=== PATIENT | female | born 1960 | race Caucasian/White ===

== ENCOUNTER 2018-07-31 09:58 | Inpatient (IN) | payer OTHER ==
[~2018-07-31 09:58] MED LIST: DEXAMETHASONE 4 MG/ML 5 ML INJ; GLYCOPYRROLATE 0.4 MG INJ; METOPROLOL 5 MG INJ; NEOSTIGMINE 3 MG/3 ML SYRINGE; PROPOFOL 200 MG INJ; ROCURONIUM 50 MG INJ
[2018-07-31] MEDS ORDERED: FENTAnyl 50 MCG/ML VIAL ×2 (10:07→16:43)
[2018-07-31] MEDS ORDERED: MIDAZOLAM 1 MG/ML 2 ML INJ (10:07)
[2018-07-31] MEDS ORDERED: PROPOFOL 20 ML (10:11)
[2018-07-31] MEDS ORDERED: CEFAZOLIN 1 GM INJ ×2 (10:11→13:33)
[2018-07-31] MEDS ORDERED: LIDOCAINE 2% (SDV) 5 ML INJ (10:11)
[2018-07-31] MEDS ORDERED: METOCLOPRAMIDE 10 MG INJ (10:12)
[2018-07-31] MEDS ORDERED: ROCURONIUM 50 MG INJ (10:16)
[2018-07-31] MEDS ORDERED: SUCCINYLCHOLINE CHLORIDE 100 MG/5 ML SYG IV (10:17)
[2018-07-31] MEDS ORDERED: IPRATROPIUM (NEB) 0.5 MG/2.5 ML AMP HHN (12:30)
[2018-07-31] MEDS ORDERED: hydrALAzine 20 MG INJ IV (12:30)
[2018-07-31] MEDS ORDERED: BISACODYL 10 MG SUPP PR (12:30)
[2018-07-31] MEDS ORDERED: CEPASTAT LOZENGE MT (12:30)
[2018-07-31] MEDS ORDERED: NALOXONE (0.4 MG/ML) INJ IV (12:30)
[2018-07-31] MEDS ORDERED: FENTAnyl 50 MCG/ML VIAL IV (12:30)
[2018-07-31] MEDS ORDERED: HYDROmorphONE 0.5 MG/0.5 ML SYG IV (12:30)
[2018-07-31] MEDS ORDERED: ONDANSETRON 4 MG INJ IV (12:30)
[2018-07-31] MEDS ORDERED: DIPHENHYDRAMINE 50 MG INJ IV ×2 (12:30)
[2018-07-31] MEDS ORDERED: MIDAZOLAM 1 MG/ML 2 ML INJ IV (12:30)
[2018-07-31] MEDS ORDERED: MEPERIDINE 25 MG INJ IV (12:30)
[2018-07-31] MEDS ORDERED: LABETALOL HCL 20MG INJ IV (12:30)
[2018-07-31] MEDS ORDERED: DIPHENHYDRAMINE 25 MG CAP PO (12:30)
[2018-07-31] MEDS ORDERED: AL HYDROX/MG HYDROX/SIMETH 30 ML CUP PO (12:30)
[2018-07-31] MEDS ORDERED: HYDROmorphONE 1 MG/5 ML IV SYRINGE IV (12:30)
[2018-07-31] MEDS ORDERED: LEVALBUTEROL (NEB) 1.25 MG/0.5 ML AMP HHN (12:30)
[2018-07-31] MEDS ORDERED: HALOPERIDOL 5 MG INJ IV (12:30)
[2018-07-31] MEDS ORDERED: LORAZEPAM 2 MG INJ IV (12:30)
[2018-07-31] MEDS ORDERED: GELATIN SIZE 100 SPONGE (12:40)
[2018-07-31] MEDS ORDERED: THROMBIN (BOVINE) 5,000 UNIT VIAL TP ×2 (12:41→14:52)
[2018-07-31] MEDS: BUPIVACAINE 0.5%/EPI (SDV) 30 ML INJ (14:22)
[2018-07-31] MEDS: CEFAZOLIN 1 GM INJ (14:23)
[2018-07-31] MEDS: SURGIFOAM POWDER 1 GM KIT ×2 (14:23→14:24)
[2018-07-31] MEDS: HEPARIN 1000 UNITS/ML 10 ML INJ ×2 (14:24)
[2018-07-31] MEDS: THROMBIN 5000 UNIT VIAL TOP ×3 (14:25→14:58)
[2018-07-31] MEDS: CA CHLORIDE 10% 10 ML SYRINGE (14:59)
[2018-07-31] MEDS: HYDROmorphONE 1 MG/5 ML IV SYRINGE IV ×2 (17:20→17:26)
[2018-07-31] MEDS: CEFAZOLIN 1 GM/50 ML (PMX) 50 ML IVPB (17:26)
[2018-07-31] MEDS: ONDANSETRON 4 MG INJ IV (17:26)
[2018-07-31] MEDS: FENTAnyl 50 MCG/ML VIAL IV ×2 (17:39→17:49)
[2018-07-31] MEDS: HYDROmorphONE 0.2 MG/ML PCA IV (17:45)
[2018-07-31] MEDS: D5W-0.45 NACL + KCL 20 MEQ 1,000 ML IV (20:28)
[2018-07-31] MEDS: DOCUSATE SODIUM 100 MG CAP PO (20:30)
[2018-08-01] MEDS: CEFAZOLIN 1 GM/50 ML (PMX) 50 ML IVPB ×2 (00:23→08:32)
[2018-08-01] MEDS: D5W-0.45 NACL + KCL 20 MEQ 1,000 ML IV (00:30)
[2018-08-01] MEDS: PANTOPRAZOLE 40 MG INJ IV (05:12)
[2018-08-01 05:15] LABS: ADD MAN DIFF? NO
[2018-08-01 05:19] LABS: WHITE BLOOD COUNT 7.6 10^3/ul (4.8-10.8)
[2018-08-01 05:19] LABS: BASOPHILS % 0.3 % (0.0-2.0); HEMATOCRIT 37.8 % (37.0-47.0); HEMOGLOBIN 12.7 g/dl (12.0-16.0); LYMPHOCYTES % 12.5 % (15.0-51.0); MEAN CORPUSCULAR HEMOGLOBIN 31.4 pg (29.0-33.0); MEAN CORPUSCULAR HGB CONC 33.6 g/dl (32.0-37.0); MEAN CORPUSCULAR VOLUME 93.6 fl (82.0-101.0); MEAN PLATELET VOLUME 9.6 fl (7.4-10.4); MONOCYTE # 0.9 10^3/ul (0.3-0.9); MONOCYTES % 11.2 % (0.0-11.0); NEUTROPHIL # 5.7 10^3/ul (1.6-7.5); NEUTROPHILS % 75.7 % (39.0-77.0); PLATELET COUNT 196 10^3/UL (140-415); RED BLOOD COUNT 4.04 10^6/ul (4.20-5.40); RED CELL DISTRIBUTION WIDTH 11.8 % (11.5-14.5)
[2018-08-01 05:30] LABS: ANION GAP 7 (5-13); BLOOD UREA NITROGEN 11 mg/dl (7-20); CALCIUM 9.3 mg/dl (8.4-10.2); CARBON DIOXIDE 30 mmol/L (21-31); CHLORIDE 102 mmol/L (97-110); CREATININE 0.72 mg/dl (0.44-1.00); Estimated GFR > 60 mL/min (>60); GLUCOSE 188 mg/dl (70-220); MAGNESIUM 1.9 mg/dl (1.7-2.5); POTASSIUM 4.9 mmol/L (3.5-5.1); SODIUM 139 mmol/L (135-144)
[2018-08-01] MEDS: DOCUSATE SODIUM 100 MG CAP PO ×2 (08:32→20:39)
[2018-08-01] MEDS: HYDROmorphONE 0.2 MG/ML PCA IV (13:11)
[2018-08-01] MEDS: CYCLOBENZAPRINE 10 MG TAB PO (23:01)
[2018-08-01] MEDS: ACETAMINOPHEN 325 MG TAB PO (23:01)
[2018-08-02] MEDS: ACETAMINOPHEN 325 MG TAB PO (04:47)
[2018-08-02 05:12] LABS: ADD MAN DIFF? NO
[2018-08-02 05:17] LABS: WHITE BLOOD COUNT 5.7 10^3/ul (4.8-10.8)
[2018-08-02 05:17] LABS: BASOPHILS % 0.4 % (0.0-2.0); EOSINOPHILS # 0.1 10^3/ul (0.0-0.5); EOSINOPHILS % 1.4 % (0.0-7.0); HEMATOCRIT 34.4 % (37.0-47.0); HEMOGLOBIN 11.1 g/dl (12.0-16.0); LYMPHOCYTES % 17.2 % (15.0-51.0); MEAN CORPUSCULAR HEMOGLOBIN 31.4 pg (29.0-33.0); MEAN CORPUSCULAR HGB CONC 32.3 g/dl (32.0-37.0); MEAN CORPUSCULAR VOLUME 97.5 fl (82.0-101.0); MEAN PLATELET VOLUME 9.6 fl (7.4-10.4); MONOCYTE # 0.7 10^3/ul (0.3-0.9); MONOCYTES % 12.4 % (0.0-11.0); NEUTROPHIL # 3.9 10^3/ul (1.6-7.5); NEUTROPHILS % 68.2 % (39.0-77.0); PLATELET COUNT 134 10^3/UL (140-415); RED BLOOD COUNT 3.53 10^6/ul (4.20-5.40); RED CELL DISTRIBUTION WIDTH 11.9 % (11.5-14.5)
[2018-08-02 05:37] LABS: ANION GAP 6 (5-13); BLOOD UREA NITROGEN 8 mg/dl (7-20); CALCIUM 8.7 mg/dl (8.4-10.2); CARBON DIOXIDE 32 mmol/L (21-31); CHLORIDE 101 mmol/L (97-110); CREATININE 0.65 mg/dl (0.44-1.00); Estimated GFR > 60 mL/min (>60); GLUCOSE 119 mg/dl (70-220); POTASSIUM 4.2 mmol/L (3.5-5.1); SODIUM 139 mmol/L (135-144)
[2018-08-02] MEDS: PANTOPRAZOLE (EC) 40 MG TAB PO (06:01)
[2018-08-02] MEDS: DOCUSATE SODIUM 100 MG CAP PO ×2 (08:15→21:10)
[2018-08-02] MEDS: HYDROCODONE/APAP (10/325) TAB PO ×4 (08:16→21:10)
[2018-08-02] MEDS: SOD CHLORIDE 0.9% 500 ML IV (08:16)
[2018-08-02] MEDS: CYCLOBENZAPRINE 10 MG TAB PO (10:56)
[2018-08-02] MEDS: LACTULOSE 30ML CUP PO (16:48)
[2018-08-03] MEDS: HYDROCODONE/APAP (10/325) TAB PO ×3 (01:03→10:45)
[2018-08-03] MEDS: CYCLOBENZAPRINE 10 MG TAB PO ×2 (03:49→08:19)
[2018-08-03 04:48] LABS: ADD MAN DIFF? NO
[2018-08-03 04:49] LABS: WHITE BLOOD COUNT 5.8 10^3/ul (4.8-10.8)
[2018-08-03 04:50] LABS: BASOPHILS % 0.3 % (0.0-2.0); EOSINOPHILS # 0.1 10^3/ul (0.0-0.5); EOSINOPHILS % 2.2 % (0.0-7.0); HEMATOCRIT 35.4 % (37.0-47.0); HEMOGLOBIN 11.3 g/dl (12.0-16.0); LYMPHOCYTES # 1.3 10^3/ul (0.8-2.9); LYMPHOCYTES % 21.5 % (15.0-51.0); MEAN CORPUSCULAR HEMOGLOBIN 31.3 pg (29.0-33.0); MEAN CORPUSCULAR HGB CONC 31.9 g/dl (32.0-37.0); MEAN CORPUSCULAR VOLUME 98.1 fl (82.0-101.0); MEAN PLATELET VOLUME 9.4 fl (7.4-10.4); MONOCYTE # 0.7 10^3/ul (0.3-0.9); MONOCYTES % 12.7 % (0.0-11.0); NEUTROPHIL # 3.7 10^3/ul (1.6-7.5); PLATELET COUNT 155 10^3/UL (140-415); RED BLOOD COUNT 3.61 10^6/ul (4.20-5.40); RED CELL DISTRIBUTION WIDTH 11.8 % (11.5-14.5)
[2018-08-03 05:15] LABS: ANION GAP 4 (5-13); BLOOD UREA NITROGEN 8 mg/dl (7-20); CALCIUM 8.9 mg/dl (8.4-10.2); CARBON DIOXIDE 34 mmol/L (21-31); CHLORIDE 99 mmol/L (97-110); CREATININE 0.66 mg/dl (0.44-1.00); Estimated GFR > 60 mL/min (>60); GLUCOSE 112 mg/dl (70-220); SODIUM 137 mmol/L (135-144)
[2018-08-03] MEDS: PANTOPRAZOLE (EC) 40 MG TAB PO (06:08)
[2018-08-03] MEDS: DOCUSATE SODIUM 100 MG CAP PO (08:19)
== END 2018-08-03 12:21 | disposition home or self-care (01) | DRG 460 ==
LOC: SDS 09:58 → REC 12:09 → MS1 18:30
PROC: 0SG30AJ Fusion of Lumbosacral Joint with Interbody Fusion Device, Posterior Approach, Anterior Column, Open Approach (ICD-10-PCS; principal; 2018-07-31 12:30)
PROC: 0ST40ZZ Resection of Lumbosacral Disc, Open Approach (ICD-10-PCS; 2018-07-31 12:30)
PROC: 01NB0ZZ Release Lumbar Nerve, Open Approach (ICD-10-PCS; 2018-07-31 12:30)
PROC: 4A11X4G Monitoring of Peripheral Nervous Electrical Activity, Intraoperative, External Approach (ICD-10-PCS; 2018-07-31 12:30)
DX: M51.16 Intervertebral disc disorders with radiculopathy, lumbar region (principal); M43.17 Spondylolisthesis, lumbosacral region; M51.17 Intervertebral disc disorders with radiculopathy, lumbosacral region; G89.18 Other acute postprocedural pain; G62.9 Polyneuropathy, unspecified; F32.9 Major depressive disorder, single episode, unspecified; F41.9 Anxiety disorder, unspecified
CPT/HCPCS: 72114; 80048; 83735; 85025; 86999; 87086; 88304; 97116; 97162; 97530